=== PATIENT | female | born 1980 | race Caucasian/White ===

== ENCOUNTER 2016-08-03 12:17 | Emergency (ER) | payer OTHER ==
[~2016-08-03] VITALS: Ht 165.1 cm; Wt 52.2 kg
[~2016-08-03 12:17] MED LIST: ANAPROX DS550 MG PO; BACTRIM DS 8001 TA1 PO; BENTYL10 MG PO; CIPRO500 MG PO; CIPROFLOXACIN500 MG PO; CLARITIN-D 12 H1 TAB PO; CLINDAMYCIN HC300 MG PO; DAYPRO600 M1 PO; FLONASE ALLERG9.9 ML NAS; KEFLEX500 MG PO; LATU60TA PO; LATU80TA PO; LITHIUM CARB300 MG PO; LYRICA75 M1 PO; MOTRIN800 MG PO; NEURONTIN300 MG PO; NORCO 325 MG-51 TAB PO; NORCO 325 MG-7.1 TAB PO; PERCOCET 325 MG1 TA3 PO; PHENERGAN25 M1 PO; PREDNICOT10 MG PO; PREDNICOT20 MG PO; PREDNISONE10 MG PO; PRILOSEC20 M1 PO; ROBAXIN750 MG PO; ROBITUSSIN AC 110 ML PO; SAPHRIS10 MG SL; SEPTRA DS 800 M1 TAB PO; TESSALON PERLE100 M1 PO; TORADOL10 MG PO; VIBRAMYCIN100 MG PO; VICODIN 5/500 505 MG PO; VOLTAREN50 M1 PO; VRAYLAR3 MG PO; XANAX1 MG PO; XYLOCAINE35 GM T; ZANTAC 150150 MG PO; ZITHROMAX Z PA250 MG PO; ZOFRAN ODT4 MG SL; ZOFRAN4 MG PO; Zofran4 MG PO; [UNRECOGNIZED DRUG - MIXTURE] T
[2016-08-03 12:22] VITALS: BP 110/72
[2016-08-03] MEDS ORDERED: AMITRIPTYLINE25 MG PO (12:22)
[2016-08-03] MEDS ORDERED: PERCOCET 325 MG1 TA7 PO (12:23)
[2016-08-03 12:34] LABS: BILIRUBIN NEGATIVE (NEGATIVE); BLOOD NEGATIVE (NEGATIVE); CLARITY SL CLOUDY (CLEAR); COLOR YELLOW (YELLOW); GLUCOSE NEGATIVE (NEGATIVE); KETONE NEGATIVE (NEGATIVE); LEUKO ESTERASE 1+ (NEGATIVE); NITRITE NEGATIVE (NEGATIVE); PROTEIN NEGATIVE (NEGATIVE); SPECIFIC GRAVITY 1.015 (1.005-1.030); UROBILINOGEN 0.2 E.U./dl (0.2-1.0)
[2016-08-03 12:41] LABS: BACTERIA 1+; EPITHELIAL CELLS 16-20; RBC 0-2 rbc/hpf (0-2); URINE REFLEX COMMENT YES (NO)
[2016-08-03 13:09] LABS: BASO % 0.4 % (0.0-1.0); EOS % 0.6 % (1.0-4.0); HEMATOCRIT 37.3 % (37.0-47.0); HEMOGLOBIN 12.9 g/dl (12.0-16.0); LYMPH # 1.7 10*3/uL (1.3-4.4); LYMPH % 31.8 % (27.0-41.0); MEAN CELL VOLUME 90.8 fl (81.0-99.0); MEAN CORPUSCULAR HGB 31.4 pg (27.0-31.0); MEAN CORPUSCULAR HGB CONC 34.6 g/dl (33.0-37.0); MEAN PLATELET VOLUME 10.2 fl (9.6-12.3); MONO # 0.5 10*3/uL (0.1-1.0); MONO % 10.4 % (3.0-9.0); NEUT # 2.9 10*3/uL (2.3-7.9); NEUT % 56.6 % (47.0-73.0); PLATELET COUNT AUTOMATED 195 10*3/uL (130-400); RED BLOOD COUNT 4.11 10*6/uL (4.10-5.10); RED CELL DISTRI WIDTH 12.4 % (0-14.5); WHITE BLOOD COUNT 5.2 10*3/uL (4.8-10.8)
[2016-08-03 13:25] LABS: ALBUMIN 3.9 gm/dl (3.1-4.5); ALKALINE PHOSPHATASE 40 U/L (45-117); BILIRUBIN, TOTAL 0.4 mg/dl (0.2-1.0); BUN 8 mg/dl (7-24); CARBON DIOXIDE 24 mmol/L (21-32); CHLORIDE 108 mmol/L (98-107); EST GLOM FILT AFRICAN AMERICAN > 60 ml/min; GLUCOSE 107 mg/dL (65-99); POTASSIUM 3.6 mmol/L (3.5-5.1); SGOT/AST 11 IU/L (3-35); SGPT/ALT 17 U/L (12-78); SODIUM 142 mmol/L (136-145); TOTAL PROTEIN 6.7 gm/dL (6.4-8.2)
[2016-08-03] MEDS ORDERED: MACROBID100 M1 PO (13:40)
[2016-08-03] MEDS ORDERED: Zofran4 MG PO (13:40)
== END 2016-08-03 15:36 | disposition home or self-care (01) ==
LOC: ED 12:17
PROVIDERS: Internal Medicine; Student in an Organized Health Care Education/Training Program
DX: N30.00 Acute cystitis without hematuria (principal); Z98.51 Tubal ligation status; Z88.0 Allergy status to penicillin

== ENCOUNTER 2016-12-28 19:41 | Emergency (ER) | payer OTHER ==
[~2016-12-28] VITALS: Ht 162.5 cm; Wt 52.6 kg
[~2016-12-28 19:41] MED LIST changes: +AMITRIPTYLINE25 MG PO; +MACROBID100 M1 PO; +PERCOCET 325 MG1 TA7 PO
[2016-12-28 20:12] VITALS: BP 127/82
[2016-12-28] MEDS ORDERED: PRILOSEC20 M1 PO (20:13)
[2016-12-28] MEDS ORDERED: BRIN10TA PO (20:14)
[2016-12-28] MEDS ORDERED: ZANTAC 300300 MG PO (20:14)
[2016-12-28 20:58] LABS: BASO % 0.2 % (0.0-1.0); EOS % 0.3 % (1.0-4.0); HEMATOCRIT 37.9 % (37.0-47.0); HEMOGLOBIN 13.1 g/dl (12.0-16.0); LYMPH # 1.6 10*3/uL (1.3-4.4); LYMPH % 17.5 % (27.0-41.0); MEAN CELL VOLUME 89.2 fl (81.0-99.0); MEAN CORPUSCULAR HGB 30.8 pg (27.0-31.0); MEAN CORPUSCULAR HGB CONC 34.6 g/dl (33.0-37.0); MEAN PLATELET VOLUME 9.8 fl (9.6-12.3); MONO # 0.7 10*3/uL (0.1-1.0); MONO % 8.3 % (3.0-9.0); NEUT # 6.5 10*3/uL (2.3-7.9); NEUT % 73.4 % (47.0-73.0); PLATELET COUNT AUTOMATED 260 10*3/uL (130-400); RED BLOOD COUNT 4.25 10*6/uL (4.10-5.10); RED CELL DISTRI WIDTH 12.4 % (0-14.5); WHITE BLOOD COUNT 8.9 10*3/uL (4.8-10.8)
[2016-12-28 21:14] LABS: ALKALINE PHOSPHATASE 49 U/L (45-117); BILIRUBIN, TOTAL 0.5 mg/dl (0.2-1.0); BUN 8 mg/dl (7-24); CARBON DIOXIDE 27 mmol/L (21-32); CHLORIDE 105 mmol/L (98-107); EST GLOM FILT AFRICAN AMERICAN > 60 ml/min; GLUCOSE 105 mg/dL (65-99); POTASSIUM 3.5 mmol/L (3.5-5.1); SGOT/AST 14 IU/L (3-35); SGPT/ALT 15 U/L (12-78); SODIUM 145 mmol/L (136-145); TOTAL PROTEIN 6.7 gm/dL (6.4-8.2)
[2016-12-28 21:50] LABS: BILIRUBIN NEGATIVE (NEGATIVE); BLOOD NEGATIVE (NEGATIVE); CLARITY SL CLOUDY (CLEAR); COLOR YELLOW (YELLOW); GLUCOSE NEGATIVE (NEGATIVE); KETONE NEGATIVE (NEGATIVE); LEUKO ESTERASE 1+ (NEGATIVE); NITRITE NEGATIVE (NEGATIVE); PROTEIN NEGATIVE (NEGATIVE); SPECIFIC GRAVITY <= 1.005 (1.005-1.030); UROBILINOGEN 0.2 E.U./dl (0.2-1.0)
[2016-12-28 22:04] LABS: BACTERIA 1+
[2016-12-28 22:05] LABS: EPITHELIAL CELLS 16-20
== END 2016-12-28 23:23 | disposition home or self-care (01) ==
LOC: ED 19:41
PROVIDERS: Nurse Practitioner Family
DX: R51 Headache (principal); H57.11 Ocular pain, right eye; Z98.51 Tubal ligation status; Z98.890 Other specified postprocedural states; Z79.899 Other long term (current) drug therapy; Z88.0 Allergy status to penicillin

== ENCOUNTER 2017-09-09 18:46 | Emergency (ER) | payer BC, OTHER ==
[~2017-09-09] VITALS: Ht 165.1 cm; Wt 50.3 kg
[~2017-09-09 18:46] MED LIST changes: +BRIN10TA PO; +ZANTAC 300300 MG PO
[2017-09-09 19:03] VITALS: BP 126/98
[2017-09-09] MEDS ORDERED: EFFEXOR XR150 M1 PO (19:18)
== END 2017-09-09 19:27 | disposition home or self-care (01) ==
LOC: ED 18:46
DX: F32.9 Major depressive disorder, single episode, unspecified (principal); Z76.0 Encounter for issue of repeat prescription; Z88.0 Allergy status to penicillin; Z79.899 Other long term (current) drug therapy

== ENCOUNTER 2017-09-24 17:14 | Emergency (ER) | payer BC, OTHER ==
[~2017-09-24] VITALS: Ht 165.1 cm; Wt 50.3 kg
[~2017-09-24 17:14] MED LIST changes: +EFFEXOR XR150 M1 PO
[2017-09-24 17:29] VITALS: BP 115/58
[2017-09-24 17:36] LABS: BILIRUBIN NEGATIVE (NEGATIVE); BLOOD 1+ (NEGATIVE); CLARITY CLEAR (CLEAR); COLOR YELLOW (YELLOW); GLUCOSE NEGATIVE (NEGATIVE); KETONE NEGATIVE (NEGATIVE); LEUKO ESTERASE NEGATIVE (NEGATIVE); NITRITE NEGATIVE (NEGATIVE); PH 5.5 (5.0-9.0); SPECIFIC GRAVITY >= 1.030 (1.005-1.030); UROBILINOGEN 0.2 E.U./dl (0.2-1.0)
[2017-09-24 17:42] LABS: BASO % 0.6 % (0.0-1.0); EOS # 0.1 10*3/uL (0.0-0.4); EOS % 2.1 % (1.0-4.0); HEMATOCRIT 38.2 % (37.0-47.0); HEMOGLOBIN 12.9 g/dl (12.0-16.0); LYMPH # 2.5 10*3/uL (1.3-4.4); MEAN CELL VOLUME 88.2 fl (81.0-99.0); MEAN CORPUSCULAR HGB 29.8 pg (27.0-31.0); MEAN CORPUSCULAR HGB CONC 33.8 g/dl (33.0-37.0); MEAN PLATELET VOLUME 9.1 fl (9.6-12.3); MONO # 0.6 10*3/uL (0.1-1.0); MONO % 8.8 % (3.0-9.0); NEUT # 3.5 10*3/uL (2.3-7.9); NEUT % 51.2 % (47.0-73.0); PLATELET COUNT AUTOMATED 266 10*3/uL (130-400); RED BLOOD COUNT 4.33 10*6/uL (4.10-5.10); RED CELL DISTRI WIDTH 12.3 % (0-14.5); WHITE BLOOD COUNT 6.8 10*3/uL (4.8-10.8)
[2017-09-24 17:44] LABS: EPITHELIAL CELLS 25-30
[2017-09-24 17:45] LABS: BACTERIA TRACE; WBC 0-2 wbc/hpf (0-5)
[2017-09-24 18:00] LABS: ALBUMIN 3.7 gm/dl (3.1-4.5); ALKALINE PHOSPHATASE 65 U/L (45-117); BUN 6 mg/dl (7-24); CHLORIDE 103 mmol/L (98-107); CREATININE 0.78 mg/dL (0.55-1.02); LIPASE 184 U/L (73-393); SGOT/AST 23 IU/L (3-35); SGPT/ALT 24 U/L (12-78); SODIUM 139 mmol/L (136-145); TOTAL PROTEIN 6.7 gm/dL (6.4-8.2)
== END 2017-09-24 19:04 | disposition home or self-care (01) ==
LOC: ED 17:14
PROVIDERS: Emergency Medicine
DX: R10.32 Left lower quadrant pain (principal); Z79.899 Other long term (current) drug therapy; Z98.51 Tubal ligation status; Z88.0 Allergy status to penicillin

== ENCOUNTER → 2017-09-25 | Outpatient (CLI) | payer BC, OTHER | END | disposition home or self-care (01) | LOC: US 09:40 | DX: R10.32 Left lower quadrant pain (principal); M54.5 Low back pain ==

== ENCOUNTER → 2017-10-09 | Outpatient (CLI) | payer BC, OTHER | END | disposition home or self-care (01) | LOC: RAD 16:13 | DX: K59.00 Constipation, unspecified (principal) ==

== ENCOUNTER 2017-11-07 08:27 | Emergency (ER) | payer BC, OTHER ==
[~2017-11-07] VITALS: Ht 162.5 cm; Wt 54.4 kg
[2017-11-07 09:04] LABS: BASO % 0.2 % (0.0-1.0); EOS # 0.1 10*3/uL (0.0-0.4); EOS % 2.6 % (1.0-4.0); HEMATOCRIT 39.2 % (37.0-47.0); HEMOGLOBIN 13.1 g/dl (12.0-16.0); LYMPH # 1.4 10*3/uL (1.3-4.4); LYMPH % 27.3 % (27.0-41.0); MEAN CELL VOLUME 88.1 fl (81.0-99.0); MEAN CORPUSCULAR HGB 29.4 pg (27.0-31.0); MEAN CORPUSCULAR HGB CONC 33.4 g/dl (33.0-37.0); MEAN PLATELET VOLUME 8.8 fl (9.6-12.3); MONO # 0.6 10*3/uL (0.1-1.0); MONO % 11.1 % (3.0-9.0); NEUT # 2.9 10*3/uL (2.3-7.9); NEUT % 58.4 % (47.0-73.0); PLATELET COUNT AUTOMATED 210 10*3/uL (130-400); RED BLOOD COUNT 4.45 10*6/uL (4.10-5.10); RED CELL DISTRI WIDTH 13.1 % (0-14.5)
[2017-11-07 09:16] LABS: BILIRUBIN NEGATIVE (NEGATIVE); BLOOD NEGATIVE (NEGATIVE); CLARITY SL CLOUDY (CLEAR); COLOR YELLOW (YELLOW); GLUCOSE NEGATIVE (NEGATIVE); KETONE NEGATIVE (NEGATIVE); LEUKO ESTERASE 2+ (NEGATIVE); NITRITE NEGATIVE (NEGATIVE); SPECIFIC GRAVITY <= 1.005 (1.005-1.030); UROBILINOGEN 0.2 E.U./dl (0.2-1.0)
[2017-11-07 09:19] LABS: ALBUMIN 3.8 gm/dl (3.1-4.5); ALKALINE PHOSPHATASE 65 U/L (45-117); BUN 6 mg/dl (7-24); CHLORIDE 107 mmol/L (98-107); CREATININE 0.88 mg/dL (0.55-1.02); LIPASE 175 U/L (73-393); POTASSIUM 3.6 mmol/L (3.5-5.1); SGOT/AST 19 IU/L (3-35); SGPT/ALT 28 U/L (12-78); SODIUM 140 mmol/L (136-145); TOTAL PROTEIN 7.1 gm/dL (6.4-8.2)
[2017-11-07 09:24] LABS: BACTERIA 2+; EPITHELIAL CELLS TNTC
[2017-11-07 12:36] VITALS: BP 105/60
== END 2017-11-07 14:24 | disposition home or self-care (01) ==
LOC: ED 08:27
PROVIDERS: Emergency Medicine
DX: K52.9 Noninfective gastroenteritis and colitis, unspecified (principal); R10.32 Left lower quadrant pain; R10.12 Left upper quadrant pain; Z98.51 Tubal ligation status; Z79.899 Other long term (current) drug therapy; Z88.0 Allergy status to penicillin

== ENCOUNTER 2017-12-22 09:46 | Emergency (ER) | payer BC, OTHER ==
[~2017-12-22] VITALS: Ht 165.1 cm; Wt 55.3 kg
[2017-12-22 09:49] VITALS: BP 119/85
[2017-12-22] MEDS ORDERED: PREDNISONE10 MG PO (09:52)
== END 2017-12-22 10:34 | disposition home or self-care (01) ==
LOC: ED 09:46
DX: L25.9 Unspecified contact dermatitis, unspecified cause (principal); Z88.0 Allergy status to penicillin; Z79.899 Other long term (current) drug therapy; Z98.51 Tubal ligation status

== ENCOUNTER 2018-01-11 13:30 | Emergency (ER) | payer OTHER ==
[~2018-01-11] VITALS: Ht 165.1 cm; Wt 56.7 kg
[2018-01-11 14:42] LABS: BASO % 0.2 % (0.0-1.0); EOS # 0.1 10*3/uL (0.0-0.4); EOS % 0.6 % (1.0-4.0); HEMATOCRIT 38.4 % (37.0-47.0); LYMPH # 0.8 10*3/uL (1.3-4.4); LYMPH % 8.9 % (27.0-41.0); MEAN CELL VOLUME 86.9 fl (81.0-99.0); MEAN CORPUSCULAR HGB 29.4 pg (27.0-31.0); MEAN CORPUSCULAR HGB CONC 33.9 g/dl (33.0-37.0); MEAN PLATELET VOLUME 10.2 fl (9.6-12.3); MONO # 0.7 10*3/uL (0.1-1.0); MONO % 8.1 % (3.0-9.0); PLATELET COUNT AUTOMATED 228 10*3/uL (130-400); RED BLOOD COUNT 4.42 10*6/uL (4.10-5.10); RED CELL DISTRI WIDTH 13.2 % (0-14.5); WHITE BLOOD COUNT 8.5 10*3/uL (4.8-10.8)
[2018-01-11 14:58] LABS: BUN 12 mg/dl (7-24); CHLORIDE 106 mmol/L (98-107); CREATININE 0.82 mg/dL (0.55-1.02); POTASSIUM 4.5 mmol/L (3.5-5.1); SGOT/AST 18 IU/L (3-35); SGPT/ALT 17 U/L (12-78); SODIUM 142 mmol/L (136-145)
[2018-01-11 14:59] LABS: ALKALINE PHOSPHATASE 62 U/L (45-117); TOTAL PROTEIN 7.1 gm/dL (6.4-8.2)
[2018-01-11 15:00] LABS: LIPASE 132 U/L (73-393)
[2018-01-11 16:55] VITALS: BP 124/70
[2018-01-11 16:58] LABS: BILIRUBIN NEGATIVE (NEGATIVE); BLOOD NEGATIVE (NEGATIVE); CLARITY CLEAR (CLEAR); COLOR YELLOW (YELLOW); GLUCOSE NEGATIVE (NEGATIVE); KETONE TRACE (NEGATIVE); LEUKO ESTERASE NEGATIVE (NEGATIVE); NITRITE NEGATIVE (NEGATIVE); UROBILINOGEN 0.2 E.U./dl (0.2-1.0)
[2018-01-11] MEDS ORDERED: ZOFRAN ODT4 MG SL (17:08)
[2018-01-11 17:16] LABS: WBC 0-2 wbc/hpf (0-5)
== END 2018-01-12 04:39 | disposition home or self-care (01) ==
LOC: ED 13:30
PROVIDERS: Nurse Practitioner Family
DX: A08.4 Viral intestinal infection, unspecified (principal); J02.9 Acute pharyngitis, unspecified; Z88.0 Allergy status to penicillin; Z79.899 Other long term (current) drug therapy; Z98.51 Tubal ligation status

== ENCOUNTER 2018-06-19 13:12 | Emergency (ER) | payer OTHER ==
[~2018-06-19] VITALS: Ht 165.1 cm; Wt 67.1 kg
[2018-06-19 13:44] LABS: BASO % 0.5 % (0.0-1.0); EOS % 0.7 % (1.0-4.0); HEMATOCRIT 36.7 % (37.0-47.0); HEMOGLOBIN 11.9 g/dl (12.0-16.0); LYMPH # 1.5 10*3/uL (1.3-4.4); LYMPH % 25.8 % (27.0-41.0); MEAN CELL VOLUME 85.3 fl (81.0-99.0); MEAN CORPUSCULAR HGB 27.7 pg (27.0-31.0); MEAN CORPUSCULAR HGB CONC 32.4 g/dl (33.0-37.0); MEAN PLATELET VOLUME 10.1 fl (9.6-12.3); MONO # 0.5 10*3/uL (0.1-1.0); MONO % 7.9 % (3.0-9.0); NEUT # 3.9 10*3/uL (2.3-7.9); NEUT % 64.9 % (47.0-73.0); PLATELET COUNT AUTOMATED 280 10*3/uL (130-400); RED CELL DISTRI WIDTH 13.8 % (0-14.5)
[2018-06-19 13:51] LABS: BILIRUBIN NEGATIVE (NEGATIVE); BLOOD NEGATIVE (NEGATIVE); CLARITY SL CLOUDY (CLEAR); COLOR YELLOW (YELLOW); GLUCOSE NEGATIVE (NEGATIVE); KETONE NEGATIVE (NEGATIVE); LEUKO ESTERASE NEGATIVE (NEGATIVE); NITRITE NEGATIVE (NEGATIVE); PH 5.5 (5.0-9.0); SPECIFIC GRAVITY >= 1.030 (1.005-1.030); UROBILINOGEN 0.2 E.U./dl (0.2-1.0)
[2018-06-19 13:58] LABS: RBC 0-2 rbc/hpf (0-2)
[2018-06-19 13:59] LABS: BACTERIA 2+; EPITHELIAL CELLS 16-20
[2018-06-19 14:00] LABS: ALBUMIN 4.1 gm/dl (3.1-4.5); ALKALINE PHOSPHATASE 83 U/L (45-117); BUN 13 mg/dl (7-24); CHLORIDE 104 mmol/L (98-107); CREATININE 0.84 mg/dL (0.55-1.02); LIPASE 127 U/L (73-393); POTASSIUM 3.5 mmol/L (3.5-5.1); SGOT/AST 15 IU/L (3-35); SGPT/ALT 20 U/L (12-78); SODIUM 137 mmol/L (136-145); TOTAL PROTEIN 7.5 gm/dL (6.4-8.2)
[2018-06-19 14:02] LABS: MUCOUS TRACE
[2018-06-19 15:30] VITALS: BP 120/78
[2018-06-19] MEDS ORDERED: ZOFRAN4 MG PO (15:36)
== END 2018-06-19 15:52 | disposition home or self-care (01) ==
LOC: ED 13:12
PROVIDERS: Emergency Medicine
DX: R11.2 Nausea with vomiting, unspecified (principal); R19.7 Diarrhea, unspecified; R52 Pain, unspecified; G89.29 Other chronic pain; Z88.0 Allergy status to penicillin; Z79.899 Other long term (current) drug therapy; Z90.710 Acquired absence of both cervix and uterus

== ENCOUNTER → 2018-08-16 | Outpatient (CLI) | payer OTHER | END | disposition home or self-care (01) | LOC: NM 08-12 07:00 | DX: R19.7 Diarrhea, unspecified (principal); R11.0 Nausea; R10.30 Lower abdominal pain, unspecified; K31.84 Gastroparesis ==

== ENCOUNTER 2019-06-26 15:25 | Emergency (ER) | payer OTHER ==
[~2019-06-26] VITALS: Wt 70.3 kg
[2019-06-26 15:26] VITALS: BP 125/86
[2019-06-26 16:35] LABS: BASO % 0.4 % (0.0-1.0); EOS % 0.3 % (1.0-4.0); HEMATOCRIT 39.2 % (37.0-47.0); HEMOGLOBIN 12.8 g/dl (12.0-16.0); LYMPH # 1.7 10*3/uL (1.3-4.4); LYMPH % 25.7 % (27.0-41.0); MEAN CELL VOLUME 83.9 fl (81.0-99.0); MEAN CORPUSCULAR HGB 27.4 pg (27.0-31.0); MEAN CORPUSCULAR HGB CONC 32.7 g/dl (33.0-37.0); MONO # 0.7 10*3/uL (0.1-1.0); MONO % 10.1 % (3.0-9.0); NEUT # 4.2 10*3/uL (2.3-7.9); NEUT % 63.4 % (47.0-73.0); PLATELET COUNT AUTOMATED 277 10*3/uL (130-400); RED BLOOD COUNT 4.67 10*6/uL (4.10-5.10); RED CELL DISTRI WIDTH 14.3 % (0-14.5); WHITE BLOOD COUNT 6.7 10*3/uL (4.8-10.8)
[2019-06-26 16:41] LABS: BILIRUBIN NEGATIVE (NEGATIVE); BLOOD NEGATIVE (NEGATIVE); CLARITY SL CLOUDY (CLEAR); COLOR YELLOW (YELLOW); GLUCOSE NEGATIVE (NEGATIVE); KETONE 1+ (NEGATIVE); LEUKO ESTERASE 1+ (NEGATIVE); NITRITE NEGATIVE (NEGATIVE); PH 7.5 (5.0-9.0); UROBILINOGEN 0.2 E.U./dl (0.2-1.0)
[2019-06-26 16:49] LABS: EPITHELIAL CELLS TNTC; YEAST TRACE
[2019-06-26 16:50] LABS: BACTERIA TRACE
[2019-06-26 16:51] LABS: ALBUMIN 3.8 gm/dl (3.1-4.5); ALKALINE PHOSPHATASE 112 U/L (45-117); BUN 10 mg/dl (7-24); CHLORIDE 105 mmol/L (98-107); CREATININE 0.89 mg/dL (0.55-1.02); LIPASE 117 U/L (73-393); POTASSIUM 3.8 mmol/L (3.5-5.1); SGOT/AST 19 IU/L (3-35); SGPT/ALT 20 U/L (12-78); SODIUM 139 mmol/L (136-145); TOTAL PROTEIN 7.5 gm/dL (6.4-8.2)
[2019-06-26] MEDS ORDERED: ZOFRAN4 MG PO (17:37)
== END 2019-06-26 17:52 | disposition home or self-care (01) ==
LOC: ED 15:25
PROVIDERS: Emergency Medicine
DX: K52.9 Noninfective gastroenteritis and colitis, unspecified (principal); R07.81 Pleurodynia; G43.909 Migraine, unspecified, not intractable, without status migrainosus; G89.29 Other chronic pain; M79.7 Fibromyalgia; J45.909 Unspecified asthma, uncomplicated; Z88.0 Allergy status to penicillin; Z79.899 Other long term (current) drug therapy; Z90.710 Acquired absence of both cervix and uterus

== ENCOUNTER 2019-07-25 16:02 | Emergency (ER) | payer OTHER, BC ==
[~2019-07-25] VITALS: Ht 165.1 cm; Wt 71.7 kg
[2019-07-25 16:14] VITALS: BP 119/84
== END 2019-07-25 19:49 | disposition home or self-care (01) ==
LOC: ED 16:02
DX: S16.1XXA Strain of muscle, fascia and tendon at neck level, initial encounter (principal); M54.5 Low back pain; M25.512 Pain in left shoulder; G43.909 Migraine, unspecified, not intractable, without status migrainosus; J45.909 Unspecified asthma, uncomplicated; Z88.0 Allergy status to penicillin; Z79.899 Other long term (current) drug therapy; V49.69XA Unspecified car occupant injured in collision with other motor vehicles in traffic accident, initial encounter; Y93.89 Activity, other specified; Y92.89 Other specified places as the place of occurrence of the external cause; Y99.8 Other external cause status

== ENCOUNTER → 2020-02-06 | Outpatient (CLI) | payer BC | END | disposition home or self-care (01) | LOC: COVID19 11:59 | DX: K52.9 Noninfective gastroenteritis and colitis, unspecified (principal); Z20.828 Contact with and (suspected) exposure to other viral communicable diseases ==

== ENCOUNTER → 2020-02-23 | Outpatient (CLI) | payer BC, OTHER | END | disposition home or self-care (01) | LOC: US 02-16 10:00 | DX: R11.0 Nausea (principal) ==

== ENCOUNTER → 2020-03-10 | Outpatient (CLI) | payer BC, OTHER | END | disposition home or self-care (01) | LOC: NM 07:00 | PROVIDERS: ATTEND Internal Medicine | DX: R11.10 Vomiting, unspecified (principal) ==

== ENCOUNTER 2020-03-30 17:06 | Emergency (ER) | payer BC, OTHER ==
[~2020-03-30] VITALS: Ht 165.1 cm; Wt 65.8 kg
[2020-03-30 17:39] VITALS: BP 112/67
[2020-03-30 20:01] LABS: BASO % 0.7 % (0.0-1.0); EOS # 0.2 10*3/uL (0.0-0.4); EOS % 2.5 % (1.0-4.0); HEMATOCRIT 38.1 % (37.0-47.0); LYMPH # 2.6 10*3/uL (1.3-4.4); LYMPH % 43.2 % (27.0-41.0); MEAN CELL VOLUME 85.8 fl (81.0-99.0); MEAN CORPUSCULAR HGB 28.4 pg (27.0-31.0); MEAN CORPUSCULAR HGB CONC 33.1 g/dl (33.0-37.0); MEAN PLATELET VOLUME 10.7 fl (9.6-12.3); MONO # 0.6 10*3/uL (0.1-1.0); NEUT # 2.6 10*3/uL (2.3-7.9); NEUT % 43.4 % (47.0-73.0); PLATELET COUNT AUTOMATED 282 10*3/uL (130-400); RED BLOOD COUNT 4.44 10*6/uL (4.10-5.10); RED CELL DISTRI WIDTH 13.7 % (0-14.5)
[2020-03-30 20:20] LABS: ALBUMIN 3.7 gm/dl (3.1-4.5); ALKALINE PHOSPHATASE 88 U/L (45-117); BUN 7 mg/dl (7-24); CHLORIDE 106 mmol/L (98-107); CREATININE 0.81 mg/dL (0.55-1.02); LIPASE 151 U/L (73-393); POTASSIUM 3.4 mmol/L (3.5-5.1); SGOT/AST 14 IU/L (3-35); SGPT/ALT 23 U/L (12-78); SODIUM 139 mmol/L (136-145)
[2020-03-30 20:20] LABS: BILIRUBIN NEGATIVE; CLARITY CLEAR (CLEAR); COLOR YELLOW (YELLOW); GLUCOSE NEGATIVE; KETONE NEGATIVE; SPECIFIC GRAVITY >= 1.030 (1.001-1.030)
[2020-03-30 20:31] LABS: BACTERIA 1+; BLOOD NEGATIVE (NEGATIVE); EPITHELIAL CELLS 21-30; LEUKO ESTERASE NEGATIVE (NEGATIVE); MUCOUS TRACE; NITRITE NEGATIVE (NEGATIVE)
== END 2020-03-30 20:55 | disposition left against medical advice (07) ==
LOC: ED 17:06
PROVIDERS: Emergency Medicine
DX: K82.8 Other specified diseases of gallbladder (principal); G43.909 Migraine, unspecified, not intractable, without status migrainosus; F31.9 Bipolar disorder, unspecified; Z88.0 Allergy status to penicillin; Z79.899 Other long term (current) drug therapy

== ENCOUNTER → 2020-04-12 | Outpatient (CLI) | payer BC, OTHER ==
[~2020-04-12] MED LIST changes: +COLACE100 MG PO; +Carafate1 GM PO; +GOOD NEIGHBOR L10 MG PO; +HYDROXYZINE PAM50 MG PO; +MELATONIN10 M5 SL; +NORCO 5-325 TA1 EACH PO; +OMEPRAZOLE40 MG PO; +PERCOCET 10-321 EACH PO; +PREGABALIN150 MG PO; +PROVENTIL HFA6.7 GM INH; +VIIBRYD40 PO; +VYVANSE30 MG PO; +ZOFRAN8 M1 PO
== END | disposition home or self-care (01) ==
LOC: COVID19 02:40
PROVIDERS: ATTEND Surgery
DX: Z01.818 Encounter for other preprocedural examination (principal)

== ENCOUNTER → 2020-04-15 | Day surgery (SDC) | payer BC, OTHER ==
[~2020-04-15] VITALS: Ht 152.4 cm
[2020-04-15 11:00] VITALS: BP 101/66
[2020-04-15 13:20] VITALS: BP 112/53
[2020-04-15 13:35] VITALS: BP 121/70
[2020-04-15 13:50] VITALS: BP 107/65
[2020-04-15 14:05] VITALS: BP 97/70
[2020-04-15 14:20] VITALS: BP 106/64
[2020-04-19 07:54] VITALS: BP 148/88
[2020-04-19 08:09] VITALS: BP 126/61
[2020-04-19 08:24] VITALS: BP 113/48
== END | disposition home or self-care (01) ==
LOC: SDC 04-12 12:30
PROVIDERS: ATTEND Surgery
DX: K81.1 Chronic cholecystitis (principal); K82.8 Other specified diseases of gallbladder; J44.9 Chronic obstructive pulmonary disease, unspecified; K21.9 Gastro-esophageal reflux disease without esophagitis; F41.9 Anxiety disorder, unspecified; F32.9 Major depressive disorder, single episode, unspecified; Z88.0 Allergy status to penicillin; Z88.8 Allergy status to other drugs, medicaments and biological substances; Z87.891 Personal history of nicotine dependence; Z98.890 Other specified postprocedural states; Z79.899 Other long term (current) drug therapy; Z83.3 Family history of diabetes mellitus; Z82.49 Family history of ischemic heart disease and other diseases of the circulatory system

== ENCOUNTER 2020-06-09 09:05 | Emergency (ER) | payer BC, OTHER ==
[~2020-06-09] VITALS: Ht 162.5 cm; Wt 63.5 kg
[2020-06-09 09:20] VITALS: BP 122/64
[2020-06-09 09:51] LABS: BASO % 0.4 % (0.0-1.0); EOS # 0.1 10*3/uL (0.0-0.4); EOS % 2.1 % (1.0-4.0); HEMATOCRIT 38.1 % (37.0-47.0); LYMPH % 37.3 % (27.0-41.0); MEAN CELL VOLUME 88.2 fl (81.0-99.0); MEAN CORPUSCULAR HGB 28.2 pg (27.0-31.0); MEAN PLATELET VOLUME 10.1 fl (9.6-12.3); MONO # 0.6 10*3/uL (0.1-1.0); MONO % 10.8 % (3.0-9.0); NEUT # 2.6 10*3/uL (2.3-7.9); NEUT % 49.2 % (47.0-73.0); PLATELET COUNT AUTOMATED 255 10*3/uL (130-400); RED BLOOD COUNT 4.32 10*6/uL (4.10-5.10); RED CELL DISTRI WIDTH 13.8 % (0-14.5); WHITE BLOOD COUNT 5.4 10*3/uL (4.8-10.8)
[2020-06-09 10:11] LABS: ALBUMIN 3.6 gm/dl (3.1-4.5); ALKALINE PHOSPHATASE 81 U/L (45-117); BUN 10 mg/dl (7-24); CHLORIDE 111 mmol/L (98-107); CREATININE 0.79 mg/dL (0.55-1.02); LIPASE 193 U/L (73-393); POTASSIUM 3.8 mmol/L (3.5-5.1); SGOT/AST 18 IU/L (3-35); SGPT/ALT 24 U/L (12-78); SODIUM 145 mmol/L (136-145); TOTAL PROTEIN 7.1 gm/dL (6.4-8.2)
[2020-06-09 10:14] LABS: BILIRUBIN Negative (Negative); BLOOD Negative (Negative); CLARITY Clear (Clear); COLOR Yellow (Yellow); GLUCOSE Negative (Negative); KETONE Negative (Negative); LEUKO ESTERASE Negative (Negative); NITRITE Negative (Negative); SPECIFIC GRAVITY <= 1.005 (1.001-1.030); UROBILINOGEN 0.2 E.U./dl (0.0-1.0)
[2020-06-09 10:25] LABS: BACTERIA TRACE
== END 2020-06-09 12:57 | disposition home or self-care (01) ==
LOC: ED 09:05
PROVIDERS: Nurse Practitioner Family
DX: N83.201 Unspecified ovarian cyst, right side (principal); K59.00 Constipation, unspecified; Z79.899 Other long term (current) drug therapy

== ENCOUNTER → 2020-07-14 | Outpatient (CLI) | payer OTHER ==
[2020-07-14 17:11] LABS: BASO % 0.5 % (0.0-1.0); EOS # 0.2 10*3/uL (0.0-0.4); EOS % 2.9 % (1.0-4.0); HEMATOCRIT 39.6 % (37.0-47.0); LYMPH % 35.9 % (27.0-41.0); MEAN CORPUSCULAR HGB 27.9 pg (27.0-31.0); MEAN CORPUSCULAR HGB CONC 32.1 g/dl (33.0-37.0); MEAN PLATELET VOLUME 10.1 fl (9.6-12.3); MONO # 0.5 10*3/uL (0.1-1.0); MONO % 8.6 % (3.0-9.0); NEUT # 2.9 10*3/uL (2.3-7.9); NEUT % 51.9 % (47.0-73.0); PLATELET COUNT AUTOMATED 304 10*3/uL (130-400); RED BLOOD COUNT 4.55 10*6/uL (4.10-5.10); RED CELL DISTRI WIDTH 13.6 % (0-14.5); WHITE BLOOD COUNT 5.6 10*3/uL (4.8-10.8)
[2020-07-14 17:30] LABS: ALBUMIN 3.8 gm/dl (3.1-4.5); ALKALINE PHOSPHATASE 92 U/L (45-117); BUN 12 mg/dl (7-24); CHLORIDE 110 mmol/L (98-107); CREATININE 0.82 mg/dL (0.55-1.02); FREE T4 0.86 ng/dl (0.76-1.46); IRON 32 ug/dL (50-170); POTASSIUM 3.7 mmol/L (3.5-5.1); SGOT/AST 14 IU/L (3-35); SGPT/ALT 22 U/L (12-78); SODIUM 141 mmol/L (136-145); TOTAL IRON BINDING CAPACITY 265 ug/dl (250-450)
[2020-07-14 17:35] LABS: THYROID STIM HORMONE (HS) 0.404 uIU/ml (0.358-4.75)
[2020-07-14 20:06] LABS: FERRITIN 24.2 ng/mL (10.0-291.0)
== END | disposition home or self-care (01) ==
LOC: LAB 16:43
PROVIDERS: ATTEND Family Medicine
DX: R53.83 Other fatigue (principal)

== ENCOUNTER → 2020-07-19 | Outpatient (CLI) | payer OTHER | END | disposition home or self-care (01) | LOC: COVID19 16:17 | PROVIDERS: ATTEND Internal Medicine | DX: Z20.822 Contact with and (suspected) exposure to COVID-19 (principal) ==

== ENCOUNTER → 2021-06-07 | Outpatient (CLI) | payer OTHER | LOC: COVID19 14:58 | PROVIDERS: ATTEND Internal Medicine | DX: Z11.52 Encounter for screening for COVID-19 (principal); Z20.822 Contact with and (suspected) exposure to COVID-19 ==

== ENCOUNTER → 2021-08-24 | Outpatient (CLI) | payer OTHER | END | disposition home or self-care (01) | LOC: COVID19 15:07 | PROVIDERS: ATTEND Internal Medicine | DX: U07.1 COVID-19 (principal) ==

== ENCOUNTER 2022-05-09 10:48 | Emergency (ER) | payer OTHER ==
[~2022-05-09] VITALS: Wt 65.3 kg
[2022-05-09 10:55] VITALS: BP 122/79
[2022-05-09] MEDS ORDERED: HYDROCODONE-AC1 EAC1 PO (15:11)
[2022-05-09] MEDS ORDERED: METHOCARBAMOL500 M1 PO (15:11)
== END 2022-05-09 15:42 | disposition home or self-care (01) ==
LOC: ED 10:48
DX: S16.1XXA Strain of muscle, fascia and tendon at neck level, initial encounter (principal); S33.5XXA Sprain of ligaments of lumbar spine, initial encounter; J45.909 Unspecified asthma, uncomplicated; Z91.030 Bee allergy status; Z88.0 Allergy status to penicillin; Z88.8 Allergy status to other drugs, medicaments and biological substances; Z79.899 Other long term (current) drug therapy; Z98.51 Tubal ligation status; Z90.710 Acquired absence of both cervix and uterus; V89.2XXA Person injured in unspecified motor-vehicle accident, traffic, initial encounter; Y93.89 Activity, other specified; Y92.89 Other specified places as the place of occurrence of the external cause; Y99.8 Other external cause status

== ENCOUNTER → 2022-08-17 | Outpatient (CLI) | payer OTHER ==
[~2022-08-17] MED LIST changes: +HYDROCODONE-AC1 EAC1 PO; +METHOCARBAMOL500 M1 PO
[2022-08-17 13:52] LABS: BASO % 0.5 % (0.0-1.0); EOS % 0.7 % (1.0-4.0); HEMATOCRIT 41.2 % (37.0-47.0); LYMPH # 1.9 10*3/uL (1.3-4.4); LYMPH % 30.7 % (27.0-41.0); MEAN CELL VOLUME 89.4 fl (81.0-99.0); MEAN CORPUSCULAR HGB 30.4 pg (27.0-31.0); MEAN PLATELET VOLUME 9.7 fl (9.6-12.3); MONO # 0.6 10*3/uL (0.1-1.0); MONO % 9.3 % (3.0-9.0); NEUT # 3.6 10*3/uL (2.3-7.9); NEUT % 58.6 % (47.0-73.0); PLATELET COUNT AUTOMATED 301 10*3/uL (130-400); RED BLOOD COUNT 4.61 10*6/uL (4.10-5.10); RED CELL DISTRI WIDTH 12.7 % (0-14.5); WHITE BLOOD COUNT 6.1 10*3/uL (4.8-10.8)
[2022-08-17 13:58] LABS: BILIRUBIN Negative (Negative); BLOOD Negative (Negative); CLARITY Clear (Clear); COLOR Yellow (Yellow); GLUCOSE Negative (Negative); KETONE Negative (Negative); LEUKO ESTERASE Negative (Negative); NITRITE Negative (Negative); UROBILINOGEN 0.2 E.U./dl (0.0-1.0)
[2022-08-17 14:04] LABS: ACT PARTIAL THROMBO TIME 24.6 SECONDS (20.0-32.1); INTERNATIONAL NORM RATIO 1.1 (2.0-3.5)
[2022-08-17 15:09] LABS: EPITHELIAL CELLS 41-50; RBC 0-2 rbc/hpf (0-2); WBC 0-2 wbc/hpf (0-5)
== END | disposition home or self-care (01) ==
LOC: LAB 13:31
PROVIDERS: ATTEND Anesthesiology Addiction Medicine
DX: N39.0 Urinary tract infection, site not specified (principal); M79.606 Pain in leg, unspecified; M79.609 Pain in unspecified limb; M54.9 Dorsalgia, unspecified

== ENCOUNTER 2023-02-19 08:09 | Emergency (ER) | payer OTHER ==
[~2023-02-19] VITALS: Ht 162.5 cm; Wt 63.5 kg
[2023-02-19 08:36] VITALS: BP 113/71
== END 2023-02-19 10:35 | disposition home or self-care (01) ==
LOC: ED 08:09
DX: S69.91XA Unspecified injury of right wrist, hand and finger(s), initial encounter (principal); G43.909 Migraine, unspecified, not intractable, without status migrainosus; J45.909 Unspecified asthma, uncomplicated; F31.9 Bipolar disorder, unspecified; E16.2 Hypoglycemia, unspecified; Z91.030 Bee allergy status; Z88.0 Allergy status to penicillin; Z88.8 Allergy status to other drugs, medicaments and biological substances; Z90.710 Acquired absence of both cervix and uterus; Z98.890 Other specified postprocedural states; Z98.51 Tubal ligation status; W19.XXXA Unspecified fall, initial encounter; Y93.89 Activity, other specified; Y92.89 Other specified places as the place of occurrence of the external cause; Y99.8 Other external cause status

== ENCOUNTER 2023-07-19 13:52 | Emergency (ER) | payer OTHER ==
[~2023-07-19] VITALS: Ht 165.1 cm; Wt 64.9 kg
[2023-07-19 14:20] LABS: BASO # 0.1 10*3/uL (0.0-0.1); BASO % 0.7 % (0.0-1.0); EOS # 0.2 10*3/uL (0.0-0.4); EOS % 2.2 % (1.0-4.0); HEMATOCRIT 43.1 % (37.0-47.0); LYMPH # 2.8 10*3/uL (1.3-4.4); LYMPH % 40.2 % (27.0-41.0); MEAN CELL VOLUME 88.9 fl (81.0-99.0); MEAN CORPUSCULAR HGB 29.3 pg (27.0-31.0); MEAN CORPUSCULAR HGB CONC 32.9 g/dl (33.0-37.0); MEAN PLATELET VOLUME 9.4 fl (9.6-12.3); MONO # 0.6 10*3/uL (0.1-1.0); MONO % 8.3 % (3.0-9.0); NEUT # 3.4 10*3/uL (2.3-7.9); NEUT % 48.5 % (47.0-73.0); PLATELET COUNT AUTOMATED 317 10*3/uL (130-400); RED BLOOD COUNT 4.85 10*6/uL (4.10-5.10); RED CELL DISTRI WIDTH 12.9 % (0-14.5)
[2023-07-19] MEDS ORDERED: ADDERALL 30 MG30 MG PO (14:31)
[2023-07-19] MEDS ORDERED: METOPROLOL SUC100 M2 PO (14:32)
[2023-07-19] MEDS ORDERED: VRAYLAR3 MG PO (14:32)
[2023-07-19 14:41] LABS: ALKALINE PHOSPHATASE 73 U/L (46-116); BUN 9 mg/dl (9-23); CHLORIDE 103 mmol/L (98-107); POTASSIUM 3.8 mmol/L (3.4-5.1); SGPT/ALT 15 U/L (5-49); TOTAL PROTEIN 7.4 gm/dL (6.0-8.0)
[2023-07-19 18:21] VITALS: BP 106/68
== END 2023-07-19 19:00 | disposition short-term general hospital (02) ==
LOC: ED 13:52
PROVIDERS: Internal Medicine
DX: R07.89 Other chest pain (principal); G43.909 Migraine, unspecified, not intractable, without status migrainosus; F31.9 Bipolar disorder, unspecified; E16.2 Hypoglycemia, unspecified; J45.909 Unspecified asthma, uncomplicated

== ENCOUNTER → 2023-07-30 | Outpatient (CLI) | payer OTHER ==
[~2023-07-30] MED LIST changes: +ADDERALL 30 MG30 MG PO; +METOPROLOL SUC100 M2 PO
== END ==
LOC: MAMMO 00:24
PROVIDERS: ATTEND Internal Medicine
DX: Z12.31 Encounter for screening mammogram for malignant neoplasm of breast (principal)

== ENCOUNTER 2024-10-27 08:56 | Emergency (ER) | payer OTHER ==
[~2024-10-27] VITALS: Ht 165.1 cm; Wt 67.2 kg
[2024-10-27 09:04] VITALS: BP 106/74
[2024-10-27] MEDS ORDERED: Ondansetron Hydrochloride 4 MG/2 ML VIAL IV ONE (09:45)
[2024-10-27] MEDS ORDERED: IOHEXOL 300 MG/ML 100 ML VIAL IV ONE (09:50)
[2024-10-27] MEDS ORDERED: Lactated Ringer's Solution 1,000 ML IV SCH (09:50)
[2024-10-27] MEDS ORDERED: Ketorolac Tromethamine 15 MG/ML VIAL IV ONE (09:50)
[2024-10-27 10:02] LABS: BASO % 0.5 % (0.0-1.0); EOS # 0.2 10*3/uL (0.0-0.4); EOS % 2.3 % (1.0-4.0); HEMATOCRIT 37.8 % (37.0-47.0); MEAN CELL VOLUME 89.6 fl (81.0-99.0); MEAN CORPUSCULAR HGB 30.3 pg (27.0-31.0); MEAN CORPUSCULAR HGB CONC 33.9 g/dl (33.0-37.0); MEAN PLATELET VOLUME 9.2 fl (9.6-12.3); MONO # 0.7 10*3/uL (0.1-1.0); MONO % 9.2 % (3.0-9.0); NEUT # 4.5 10*3/uL (2.3-7.9); PLATELET COUNT AUTOMATED 284 10*3/uL (130-400); RED BLOOD COUNT 4.22 10*6/uL (4.10-5.10); RED CELL DISTRI WIDTH 12.9 % (0-14.5); WHITE BLOOD COUNT 7.8 10*3/uL (4.8-10.8)
[2024-10-27 10:24] LABS: ALKALINE PHOSPHATASE 78 U/L (46-116); BUN 8 mg/dl (9-23); CHLORIDE 103 mmol/L (98-107); POTASSIUM 3.8 mmol/L (3.4-5.1); SGPT/ALT 13 U/L (5-49); TOTAL PROTEIN 6.5 gm/dL (6.0-8.0)
[2024-10-27] MEDS ORDERED: Lactated Ringer's Solution 1,000 ML IV ONE (10:51)
[2024-10-27 10:59] LABS: BILIRUBIN Negative (Negative); BLOOD Negative (Negative); CLARITY Cloudy (Clear); COLOR Yellow (Yellow); GLUCOSE Negative (Negative); KETONE Negative (Negative); LEUKO ESTERASE Negative (Negative); NITRITE Negative (Negative); PH 5.5 (4.5-8.0); SPECIFIC GRAVITY <= 1.005 (1.001-1.030); UROBILINOGEN 0.2 E.U./dl (0.0-1.0)
[2024-10-27 11:10] LABS: BACTERIA 2+; EPITHELIAL CELLS 21-30
[2024-10-27] MEDS ORDERED: Ondansetron4 MG PO (13:17)
== END 2024-10-27 14:02 | disposition home or self-care (01) ==
LOC: ED 08:56
PROVIDERS: Emergency Medicine
DX: K52.9 Noninfective gastroenteritis and colitis, unspecified (principal); N83.201 Unspecified ovarian cyst, right side; R11.2 Nausea with vomiting, unspecified; Z98.890 Other specified postprocedural states; Z91.030 Bee allergy status; Z88.0 Allergy status to penicillin; Z88.8 Allergy status to other drugs, medicaments and biological substances; Z79.899 Other long term (current) drug therapy; Z87.42 Personal history of other diseases of the female genital tract; Z90.711 Acquired absence of uterus with remaining cervical stump

== ENCOUNTER 2025-03-26 18:38 | Observation (INO) | payer OTHER ==
[~2025-03-26] VITALS: Ht 165.1 cm; Wt 67.6 kg
[~2025-03-26 18:38] MED LIST changes: +Ondansetron4 MG PO
[2025-03-26 18:44] VITALS: BP 150/89
[2025-03-26 19:06] LABS: BASO # 0.1 10*3/uL (0.0-0.1); BASO % 0.5 % (0.0-1.0); EOS # 0.2 10*3/uL (0.0-0.4); EOS % 1.3 % (1.0-4.0); MEAN CELL VOLUME 88.8 fl (81.0-99.0); MEAN CORPUSCULAR HGB 29.9 pg (27.0-31.0); MEAN PLATELET VOLUME 10.1 fl (9.6-12.3); MONO # 1.0 10*3/uL (0.1-1.0); MONO % 7.9 % (3.0-9.0); NEUT # 7.5 10*3/uL (2.3-7.9); NEUT % 62.8 % (47.0-73.0); NUCLEATED RED BLOOD CELL 0.0 % (0.0-0.0); NUCLEATED RED BLOOD CELL 0.0 10*3/uL (0.0-0.0); PLATELET COUNT AUTOMATED 351 10*3/uL (130-400); RED CELL DISTRI WIDTH 13.1 % (0-14.5)
[2025-03-26 19:24] LABS: ACT PARTIAL THROMBO TIME 20.0 SECONDS (20.0-32.1)
[2025-03-26 19:26] LABS: BUN 5 mg/dl (9-23); SGPT/ALT 14 U/L (5-49)
[2025-03-26 20:43] VITALS: BP 138/81
[2025-03-26] MEDS ORDERED: ASPIRIN, CHEWABLE 81 MG TAB PO ONE (21:15)
[2025-03-26] MEDS ORDERED: PREGABALIN75 MG PO (22:06)
[2025-03-26] MEDS ORDERED: Ondansetron Hydrochloride 4 MG/2 ML VIAL IV PRN (22:20)
[2025-03-26] MEDS ORDERED: BISACODYL 5 MG TAB PO PRN (22:20)
[2025-03-26] MEDS ORDERED: ACETAMINOPHEN 325 MG TAB PO PRN (22:20)
[2025-03-26] MEDS ORDERED: Acetaminophen/Hydrocodone 5 MG/325 MG TABLET PO PRN (22:20)
[2025-03-26] MEDS ORDERED: BISACODYL 10 MG SUPP R PRN (22:20)
[2025-03-26] MEDS ORDERED: TEMAZEPAM 15 MG CAP PO PRN (22:20)
[2025-03-26] MEDS ORDERED: ACETAMINOPHEN 650 MG SUPP R PRN (22:20)
[2025-03-26 22:42] VITALS: BP 109/61
[2025-03-27] VITALS (7 sets, daily range): BP systolic 102–114; BP diastolic 52–70
[2025-03-27 05:55] LABS: VITAMIN D, 25-HYDROXY 30.2 ng/mL (30-100)
[2025-03-27 05:59] LABS: BASO # 0.0 10*3/uL (0.0-0.1); BASO % 0.5 % (0.0-1.0); EOS # 0.1 10*3/uL (0.0-0.4); EOS % 1.9 % (1.0-4.0); MEAN CELL VOLUME 89.0 fl (81.0-99.0); MEAN CORPUSCULAR HGB 29.2 pg (27.0-31.0); MEAN PLATELET VOLUME 10.3 fl (9.6-12.3); MONO # 0.6 10*3/uL (0.1-1.0); MONO % 8.5 % (3.0-9.0); NEUT # 3.9 10*3/uL (2.3-7.9); NEUT % 51.6 % (47.0-73.0); NUCLEATED RED BLOOD CELL 0.0 % (0.0-0.0); NUCLEATED RED BLOOD CELL 0.0 10*3/uL (0.0-0.0); PLATELET COUNT AUTOMATED 315 10*3/uL (130-400); RED CELL DISTRI WIDTH 13.2 % (0-14.5)
[2025-03-27] MEDS ORDERED: OMEPRAZOLE 20 MG CAP PO SCH (06:00)
[2025-03-27 06:07] LABS: BUN 7 mg/dl (9-23); FREE T4 1.16 ng/dl (0.89-1.76); LDL CHOLESTEROL 128 mg/dL (9-159)
[2025-03-27] MEDS ORDERED: PREGABALIN 75 MG CAP PO SCH (10:00)
[2025-03-27] MEDS ORDERED: METOPROLOL SUCCINATE XR 100 MG TAB PO SCH (10:00)
[2025-03-27] MEDS ORDERED: CARIPRAZINE HCL 3 MG CAPSULE PO SCH (10:00)
[2025-03-27] MEDS ORDERED: ASPIRIN ENTERIC COATED 81 MG TAB PO SCH (10:00)
[2025-03-27] MEDS ORDERED: LORATADINE 10 MG TAB PO SCH (10:00)
[2025-03-27] MEDS ORDERED: Pantoprazole Sodium 20 MG TAB PO ONE (18:55)
[2025-03-27] MEDS ORDERED: ATORVASTATIN CALCIUM 40 MG TABLET PO SCH (22:00)
[2025-03-28] VITALS: BP 100/60
[2025-03-28 08:00] VITALS: BP 130/63; BP 97/60
[2025-03-28] MEDS ORDERED: ATORVASTATIN CA40 M1 PO (11:04)
[2025-03-28 12:00] VITALS: BP 95/52
== END 2025-03-28 15:05 | disposition home or self-care (01) ==
LOC: ED 18:38 → EDHOLD 21:57 → 4E 03-27 04:38
PROVIDERS: Emergency Medicine; ADMIT Internal Medicine; ATTEND Internal Medicine
DX: R07.89 Other chest pain (principal); D72.829 Elevated white blood cell count, unspecified; F31.9 Bipolar disorder, unspecified; F90.9 Attention-deficit hyperactivity disorder, unspecified type; R00.0 Tachycardia, unspecified; K21.9 Gastro-esophageal reflux disease without esophagitis; E03.9 Hypothyroidism, unspecified; Z79.899 Other long term (current) drug therapy

== ENCOUNTER 2025-06-10 10:30 | Emergency (ER) | payer OTHER ==
[~2025-06-10] VITALS: Wt 68.0 kg
[~2025-06-10 10:30] MED LIST changes: +ATORVASTATIN CA40 M1 PO; +PREGABALIN75 MG PO
[2025-06-10 10:42] VITALS: BP 109/89
[2025-06-10] MEDS ORDERED: Dexamethasone Sodium Phospha 20 MG/5 ML VIAL IM ONE (10:55)
[2025-06-10] MEDS ORDERED: LIDOCAINE 1 EA PATCH T ONE (12:15)
[2025-06-10] MEDS ORDERED: LIDO KING1 EACH T (12:18)
[2025-06-10] MEDS ORDERED: MEDROL DOSEPAK4 MG PO (12:18)
[2025-06-10] MEDS ORDERED: MELOXICAM15 MG PO (12:18)
[2025-06-10] MEDS ORDERED: ZANAFLEX2 M1 PO (12:18)
[2025-06-10] MEDS ORDERED: LIDOCAINE 4% PATCH T ONE (12:25)
== END 2025-06-10 12:33 | disposition home or self-care (01) ==
LOC: ED 10:30
DX: M62.830 Muscle spasm of back (principal); M54.50 Low back pain, unspecified; G89.29 Other chronic pain; Z91.030 Bee allergy status; Z88.0 Allergy status to penicillin; Z88.8 Allergy status to other drugs, medicaments and biological substances; Z79.899 Other long term (current) drug therapy; Z90.49 Acquired absence of other specified parts of digestive tract; Z90.710 Acquired absence of both cervix and uterus; Z87.42 Personal history of other diseases of the female genital tract